=== PATIENT | female | born 2000 | race Two or more races ===

== ENCOUNTER 2023-10-14 22:05 | Emergency (ER) | payer MEDICAID, OTHER ==
[~2023-10-14] VITALS: Ht 154.9 cm; Wt 88.0 kg
[2023-10-15] MEDS: ACETAMINOPHEN 325 MG TAB PO ONE (00:09)
[2023-10-15] MEDS ORDERED: AMOX875T4 PO (00:10)
[2023-10-15] MEDS ORDERED: PROM1SOL4 PO (00:10)
[2023-10-15] MEDS ORDERED: PRED20TA2 PO (00:10)
[2023-10-15 00:49] VITALS: BP 117/74; PULSE 101; RESP 20; TEMP 98.8; O2SAT 97
== END 2023-10-15 00:56 | disposition home or self-care (01) ==
LOC: ER 22:05 → EDBD 22:05 → ER 10-15 00:56
DX: J18.9 Pneumonia, unspecified organism (principal); R50.9 Fever, unspecified
CPT/HCPCS: 71045; 93005